=== PATIENT | female | born 1995 | race Hispanic/Latino ===

== ENCOUNTER 2024-11-09 01:32 | Emergency (ER) | payer OTHER ==
--- OUTSIDE RECORDS SUMMARY | 2024-11-09 01:35 | XMS REPORT | Continuity of Care Document ---
Author Name Unknown Address [address] [facility] [address] [place] [address] [facility] Address [address] [facility] [address] [place] [address] Care Team Providers Care Paper Mill Manager Name Role Phone DR RACHEL MEJIA Attending Clinician Bin LEMON, DR MANDIE Don Attending Clinician DR RACHEL Yusuf Admitting Clinician Bin LEMON, DR MANDIE Don Admitting Clinician Mirtha sainz Encounters Start Date/Time End Date/Time Encounter Type Admission Type Attending Clinicians Care Facility Care Department Encounter ID Source 2020-03-03 00:00:00 2020-03-03 00:00:00 Outpatient [facility] [id number] [facility] 2019-01-25 22:55:00 2019-01-26 01:44:00 Emergency E RACHEL MEJIA [facility] [id number] [facility] 2018-10-07 08:59:00 2018-10-07 10:41:00 Emergency E MANDIE LEMON [facility] [id number] [facility] Results Test Description Test Time Test Comments Results Resul t Comments Source U/S GALLBLADDER 2 01:16:47 Exam: Gallbladder ultrasoundLocation: R 16History: Right upper quadrant painComparison: Correlation with CT performed on 01/26/2018Technique: Static, grayscale images of the abdomen limited to the right upperquadrant were obtained.FINDINGS:Liver demonstrates slightly increased echogenicity and coarsened echotexture.No discrete mass lesions are identified. Liver measures 13.7 cm in length.Gallstones are present within the gallbladder lumen. There is no gallbladderwall thickening. There is no pericholecystic fluid on ultrasound. Personographer, sonographic Stevens sign is absent.The common bile duct measures 4 mm. There is no intrahepatic or extrahepaticbiliary dilatation.The pancreas is partially obscured by overlying bowel gas. The visualized headand proximal body are within normal limits.The right kidney measures 10.6 x 4.2 x 5.4 cm. No mass lesions are seen. Thereis no obstruction.The abdominal aorta and inferior vena cava are within normal limits.IMPRESSION:Cholelithi asis without further sonographic evidence for acute cholecystitis.Please correlate. If there is continued clinical concern, consider furthercharacterization with HIDA scan. CT ABDOMEN AND PELVIS WITH CONTRAST 2 00:43:10 CT OF THE ABDOMEN AND PELVIS WITH CONTRASTLocation code:[id number] HISTORY:R side abdominal pain COMPARISON: None available TECHNIQUE:Multiple transaxial images of the abdomen and pelvis were obtained after 100 mL of Omnipaque 300 contrast . Coronal and sagittal reformattedimages were obtained. One or more of the following dose reduction techniqueswere used: Automatic exposure control, adjustment of the mA and/or kV accordingto patient size, and/or utilization of iterative reconstruction technique.Creatinine:0.8 mg/dL, GFR:Greater than 60, DLP:1598 mGy-cmFINDINGS: Abdomen The visualized structures of the lower thorax are unremarkable. There is moderate distention of this gallbladder. Gallstones are seen at thefundus. There is gallbladder wall thickening and minimal pericholecysticinfiltration. Liver, spleen, pancreas, adrenal glands and kidneys are withinnormal limits. There is no hydronephrosis or hydroureter.Unopacified loops of large and small bowel are within normal limits. There isno evidence for obstruction or abnormal mural thickening. Normal caliberappendix is seen in the right lower quadrant. No mesenteric or retroperitoneal lymphadenopathy is found. There is no freeintraperitoneal air or fluid.Visualized abdominal aorta is within normal limits.FINDINGS: PelvisUterus and adnexa are within normal limits. There is small free pelvic fluid.Spondylosis is most pronounced at the L5-S1 level with possible disc protrusionand canal stenosis. No discrete osteolytic or osteosclerotic lesions areotherwise seen..IMPRESSION: 1. There is abnormal dilation of the gallbladder with layering gallstones andgallbladder wall thickening and minimal pericholecystic infiltration. Findingsmay indicate an acute cholecystitis.2. Small free pelvic fluid which is likely physiologic.3. Spondylosis at the L5-S1 level. COMPREHENSIVE METABOLIC [id number] 23:59:00* Test Item Value Reference Range Interpretation Comme nts GLUCOSE (test code = 06D) 119 mg/dL 75-100 H SODIUM (test code = 01A) 139 mmol/L 136-145 POTASSIUM (test code = 01B) 3.7 mmol/L 3.6-5.1 CHLORIDE (test code = 04A) 107 mmol/L 98-107 CO2 (test code = 02A) 27 mmol/L 22-32 ANION GAP (test code = ANG) 8.7 mmol/L BUN (test code = 05D) 6 mg/dL 7-18 L CREATININE (test code = 03E) 0.8 mg/dL 0.4-1.1 BUN/CREA (test code = BCR) 7 12-20 L CALCIUM (test code = 09D) 8.4 mg/dL 8.3-9.5 BILI TOTAL (test code = 11A) 0.7 mg/dL 0.2-1.0 PROTEIN (test code = 07D) 7.4 g/dL 6.4-8.2 ALBUMIN (test code = 08D) 4.2 g/dL 3.5-4.8 GLOBULIN (test code = GLB) 3.2 g/dL 1.5-3.8 ALB/GLOB (test code = AGRR) 1.3 1.0-2.6 ALK PHOS (test code = 35A) 64 IU/L 42-121 AST (test code = 30A) 20 IU/L <=42 ALT (test code = 31A) 39 IU/L <=78 CBC (INCLUDES AUTOMATED DIFFERENTIAL)2019-01-25 23:43:00* Test Item Value Reference Range Interpretation Comme nts WBC (test code = WBC) 7.7 10\S\3/uL 4.5-11.0 RBC (test code = RBC) 3.84 10\S\6/uL 4.30-5.70 L HGB (test code = HBG) 12.6 g/dL 12.0-15.5 HCT (test code = HCT) 36.7 % 35.0-44.0 MCV (test code = MCV) 95.6 fL 81.0-99.0 MCH (test code = MCH) 32.8 pg 27.0-31.0 H MCHC (test code = MCHC) 34.3 g/dL 32.0-36.0 RDW (test code = RDW) 11.9 % 11.5-14.5 PLT (test code = PLT) 198 10\S\3/uL 130-400 MPV (test code = MPV) 11.9 fL 9.4-12.4 NEUTROP # (test code = NE#) 4.6 10\S\3/uL 1.6-8.0 LYMPH # (test code = LY#) 2.3 10\S\3/uL 1.1-3.5 MONOCYTE # (test code = MO#) 0.7 10\S\3/uL 0.0-1.1 EOSINOPH # (test code = EO#) 0.1 10\S\3/uL 0.0-0.7 BASOPHIL # (test code = BA#) 0.0 10\S\3/uL 0.0-0.3 IG # (test code = IG#) 0.02 10\S\3/uL 0.00-0.06 NRBC # (test code = NRBC#) 0.00 10\S\3/uL 0.00-0.01 NEUTROPH % (test code = NE%) 59.5 % 35.0-73.0 LYMPH % (test code = LY%) 30.1 % 20.0-55.0 MONO % (test code = MO%) 9.0 % 2.5-10.0 EOSINOPH % (test code = EO%) 0.6 % 0.0-5.0 BASOPHIL % (test code = BA%) 0.5 % 0.0-2.0 IG % (test code = IG%) 0.3 % 0.0-0.8 NRBC% (test code = NRBC%) 0.0 % 0.0-0.2 MANDIFF (test code = MDIFF) NO NO RBC MORPH (test code = RBCMOR) NORMAL URINALYSIS WITH [id number] 23:20:00* Test Item Value Reference Range Interpretation Comme nts COLOR (test code = COLU) YELLOW YELLOW CLARITY (test code = CLA) TURBID CLEAR A GLUCOSE UR (test code = UA GLUCOSE) NEGATIVE NEGATIVE BILI UR (test code = BILE) NEGATIVE NEGATIVE KETONES UR (test code = GOLDIE) NEGATIVE NEGATIVE SP GRAVITY (test code = SPGR) 1.013 1.005-1.030 PH UR (test code = PH) 7.5 4.5-8.0 PROTEIN UR (test code = PU) NEGATIVE NEGATIVE UROBIL UR (test code = UROQ) 0.2 EU/dL 0.2-1.0 NITRITE UR (test code = NITRITE) NEGATIVE NEGATIVE BLOOD UR (test code = UA BLOOD) NEGATIVE NEGATIVE LEUK ES UR (test code = LEUK) NEGATIVE NEGATIVE WBC UR (test code = UWBC) 0 /HPF 0-5 RBC UR (test code = URBC) 0 /HPF 0-2 EPITH UR (test code = UEPC) FEW /LPF FEW BACTERIA UR (test code = UBACT) MODERATE /HPF NONE A CAST UR (test code = CAST) /LPF NONE CRYSTAL UR (test code = CRYU) / LPF NONE MUCUS UR (test code = MUC) / HPF NONE AMORPH UR (test code = SANDRA) / HPF NONE TRICH UR (test code = UTRICH) /HPF NONE YEAST UR (test code = UY) /HPF NONE SPERM UR (test code = USPERM) /HPF NONE URINE [id number] 23:14:00* Test Item Value Reference Range Interpretation Comme nts PREG UR (test code = PGU) NEGATIVE NEGATIVE U/S [id number] 10:22:53Right upper quadrant ultrasoundLocation Code: [id number] HISTORY: Abdominal painTechnique: Grayscale and selected color Doppler ultrasound of the abdomen wasperformed.Findings:The liver is normal in e chogenicity. There is no mass or intrahepatic biliaryductal dilatation. Right liver span is 13.1cm.Gallstones seen in the neck of the gallbladder. Gallbladder is contracted withthe wall measuring 2 mm. Common bile duct measures 6 mm. There is nopericholecystic fluid. Sonographic Stevens sign is negative.The right kidney is normal in echogenicity with no focal mass, cyst,calcification, or hydronephr osis. It measures 10.5 x 5.0 x 4.0 cm.The visualized portions of the pancreas, aorta, and inferior vena cava areunremarkable. IMPRESSION: Contracted gallbladder with gallstone in the neck.AMYLASE AND [id number] 10:16:00* Test Item Value Reference Range Interpretation Comme nts AMYLASE (test code = 10A) 42 U/L 28-100 LIPASE (test code = 60A) 72 IU/L 73-393 L COMPREHENSIVE METABOLIC [id number] 10:16:00* Test Item Value Reference Range Interpretation Comme nts GLUCOSE (test code = 06D) 85 mg/dL 75-100 SODIUM (test code = 01A) 142 mmol/L 136-145 POTASSIUM (test code = 01B) 3.4 mmol/L 3.6-5.1 L CHLORIDE (test code = 04A) 108 mmol/L 98-107 H CO2 (test code = 02A) 28 mmol/L 22-32 ANION GAP (test code = ANG) 9.4 mmol/L BUN (test code = 05D) 8 mg/dL 7-18 CREATININE (test code = 03E) 0.7 mg/dL 0.4-1.1 BUN/CREA (test code = BCR) 11 12-20 L CALCIUM (test code = 09D) 8.7 mg/dL 8.3-9.5 BILI TOTAL (test code = 11A) 0.5 mg/dL 0.2-1.0 PROTEIN (test code = 07D) 7.7 g/dL 6.4-8.2 ALBUMIN (test code = 08D) 4.2 g/dL 3.5-4.8 GLOBULIN (test code = GLB) 3.5 g/dL 1.5-3.8 ALB/GLOB (test code = AGRR) 1.2 1.0-2.6 ALK PHOS (test code = 35A) 71 IU/L 42-121 AST (test code = 30A) 15 IU/L <=42 ALT (test code = 31A) 27 IU/L <=78 SERUM [id number] 10:10:00* Test Item Value Reference Range Interpretation Comme nts PREG SRM (test code = PGS) NEGATIVE NEGATIVE CBC (INCLUDES AUTOMATED DIFFERENTIAL)2018-10-07 09:59:00* Test Item Value Reference Range Interpretation Comme nts WBC (test code = WBC) 6.3 10\S\3/uL 4.5-11.0 RBC (test code = RBC) 4.18 10\S\6/uL 4.30-5.70 L HGB (test code = HBG) 13.5 g/dL 12.0-15.5 HCT (test code = HCT) 41.2 % 35.0-44.0 MCV (test code = MCV) 98.6 fL 81.0-99.0 MCH (test code = MCH) 32.3 pg 27.0-31.0 H MCHC (test code = MCHC) 32.8 g/dL 32.0-36.0 RDW (test code = RDW) 11.9 % 11.5-14.5 PLT (test code = PLT) 233 10\S\3/uL 130-400 MPV (test code = MPV) 11.9 fL 9.4-12.4 NEUTROP # (test code = NE#) 2.6 10\S\3/uL 1.6-8.0 LYMPH # (test code = LY#) 3.1 10\S\3/uL 1.1-3.5 MONOCYTE # (test code = MO#) 0.4 10\S\3/uL 0.0-1.1 EOSINOPH # (test code = EO#) 0.1 10\S\3/uL 0.0-0.7 BASOPHIL # (test code = BA#) 0.0 10\S\3/uL 0.0-0.3 IG # (test code = IG#) 0.02 10\S\3/uL 0.00-0.06 NRBC # (test code = NRBC#) 0.00 10\S\3/uL 0.00-0.01 NEUTROPH % (test code = NE%) 40.9 % 35.0-73.0 LYMPH % (test code = LY%) 49.4 % 20.0-55.0 MONO % (test code = MO%) 7.0 % 2.5-10.0 EOSINOPH % (test code = EO%) 1.9 % 0.0-5.0 BASOPHIL % (test code = BA%) 0.5 % 0.0-2.0 IG % (test code = IG%) 0.3 % 0.0-0.8 NRBC% (test code = NRBC%) 0.0 % 0.0-0.2 MANDIFF (test code = MDIFF) NO NO RBC MORPH (test code = RBCMOR) NORMAL
--- NOTE | 2024-11-09 01:54 | EDPHYS ---
Physician Documentation [facility] Name: Vickie Telles Age: 29 yrs Sex: Female : 1995 Arrival Date: 11/09/2024 Time: 01:32 Bed IW4 Private MD: ED Physician Rodrigo Cobb HPI: 11/09 01:47 This 29 yrs old Female presents to ER via Unassigned with complaints of Ankle ec2 Injury, LEFT ANKLE. 01:47 Patient arrives today for evaluation of a left ankle injury. [place] that [place]. Denies any other injuries or concerns. Reports some swelling to the area.. 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 - Infectious Disease History:: Denies. - Social history:: Smoking status: Patient denies any tobacco usage or history of. Patient/guardian denies using alcohol, street drugs. ROS: 01:47 Constitutional: as per hpi ec2 Exam: 01:47 Constitutional: GEN: NAD Head: atraumatic Eyes: EOMI Ears: External ears are ec2 normal. CV: regular rate LUNGS: no respiratory distress ABD: non-distended SKIN: no evidence of rashes MSK: Left ankle with joint effusion appreciated, intact distal neurovascular status, TTP to the lateral malleolus Vital Signs: 02:24 BP 130 / 88; Pulse 91; Resp 16 S; Temp 98.4(O); Pulse Ox 100% on R/A; Weight 90.72 kg lg3 (R); Height 5 ft. 3 in. (R); Pain 3/10; 02:24 Body Mass Index 35.43 (90.72 kg, 160.02 cm) lg3 02:24 Pain Scale: Adult lg3 MDM: 01:46 Medical Screening Exam initiated ec2 01:48 Data reviewed: vital signs, nurses notes. ED course: Patient arrives today for ec2 evaluation of a left ankle injury. Examination yields MSK findings as above. Will obtain radiograph. DDx includes ankle sprain, fracture.. 01:53 ED course: Ankle x-ray independently reviewed and interpreted by me, shows soft tissue ec2 swelling, no evidence of bony fracture or dislocation. Will discharge home, place patient in Will wrap, and crutches and discharged home. 11/09 01:36 Order name: Ankle Left 3 View XRAY ec2 11/09 01:53 Order name: Will Wrap; Complete Time: 02:29 ec2 11/09 01:53 Order name: Crutches; Complete Time: 02:29 ec2 Administered Medications: 02:22 CANCELLED (Physician Discretion): [id number] mg IM once ec2 Disposition Summary: 11/09/24 01:53 Discharge Ordered Notes: Location: Home ec2 Condition: Stable ec2 Diagnosis - Sprain of ankle ec2 Followup: ec2 - With: Private Physician - When: - Reason: Re-evaluation by your physician Discharge Instructions: - Discharge Summary Sheet ec2 - Ankle Sprain, [id number] ec2 Forms: - Medication Reconciliation Form ec2 - Antibiotic Education ec2 - Prescription Opioid Use ec2 - Patient Portal Instructions ec2 - Leadership Thank You Letter ec2 Prescriptions: - methocarbamol 500 mg Oral tablet - take 2 tablets ORAL route 4 times per day; 20 tablet; Refills: 0, Product ec2 Selection Permitted Signatures: Dispatcher [employer] Shell Wheatley RN RN lg3 Rodrigo Cobb MD MD ec2 Corrections: (The following items were deleted from the chart) 02:22 01:53 Ketorolac IM 30 mg IM once ordered. ec2 ec2 02: 02:25 Allergies: Ibudone; lg3 lg3
[2024-11-09] MEDS ORDERED: KETOROLAC 30 MG/ML INJ ONE (02:15)
--- NOTE | 2024-11-09 02:30 | ER ---
Nurse's Notes [facility] Name: Vickie Telles Age: 29 yrs Sex: Female : 1995 Arrival Date: 11/09/2024 Time: 01:32 Bed IW4 Private MD: Diagnosis: Sprain of ankle Presentation: 11/09 02:24 Chief complaint: Patient states: [place]. pain 3/10. lg3 Coronavirus screen: Client denies travel out of the [place] in the last 14 days. At this time, the client does not indicate any symptoms associated with coronavirus-19. Ebola Screen: No symptoms or risks identified at this time. Initial Sepsis Screen: Does the patient meet any 2 criteria? No. Patient's initial sepsis screen is negative. Does the patient have a suspected source of infection? No. Patient's initial sepsis screen is negative. Risk Assessment: Do you want to hurt yourself or someone else? Patient reports no desire to harm self or others. Onset of symptoms was November 09, 2024. 02:24 Method Of Arrival: Wheelchair lg3 02:24 Acuity: JUDE 4 lg3 Triage Assessment: 02:25 General: Appears in no apparent distress. comfortable, Behavior is calm, cooperative. lg3 Pain: Complains of pain in left ankle Pain currently is 3 out of 10 on a pain scale. EENT: No deficits noted. No signs and/or symptoms were reported regarding the EENT system. Neuro: No deficits noted. Thomas Agitation-Sedation Scale (RASS): 0 - Alert and Calm Level of Consciousness is awake, alert, obeys commands, Oriented to person, place, time, situation. Cardiovascular: No deficits noted. Denies chest pain, shortness of breath, Capillary refill < 3 seconds Clubbing of nail beds is absent JVD is absent Patient's skin is warm and dry. Respiratory: No deficits noted. Airway is patent Respiratory effort is even, unlabored, Respiratory pattern is regular, symmetrical. GI: No deficits noted. No signs and/or symptoms were reported involving the gastrointestinal system. : No signs and/or symptoms were reported regarding the genitourinary system. Derm: No deficits noted. No signs and/or symptoms reported regarding the dermatologic system. Skin is intact, is healthy with good turgor, Skin is dry, Skin is normal, Skin temperature is warm. Musculoskeletal: Circulation, motion, and sensation intact. Range of motion: limited in all extremities, Swelling present in left ankle. 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 - Infectious Disease History:: Denies. - Social history:: Smoking status: Patient denies any tobacco usage or history of. Patient/guardian denies using alcohol, street drugs. Screenin:28 [facility] ED Fall Risk Assessment (Adult) History of falling in the last 3 months, lg3 including since admission No falls in past 3 months (0 pts) Confusion or Disorientation No (0 pts) Intoxicated or Sedated No (0 pts) Impaired Gait No (0 pts) Mobility Assist Device Used No (0 pt) Altered Elimination No (0 pt) Score/Fall Risk Level 0 - 2 = Low Risk Oriented to surroundings, Maintained a safe environment, Educated pt \T\ family on fall prevention, incl call for assistance when getting out of bed, Assessed \T\ reinforced patient's understanding of fall precautions. Abuse screen: Denies threats or abuse. Denies injuries from another. Nutritional screening: No deficits noted. Tuberculosis screening: No symptoms or risk factors identified. Assessment: 02:28 General: see triage assessment. lg3 Vital Signs: 02:24 BP 130 / 88; Pulse 91; Resp 16 S; Temp 98.4(O); Pulse Ox 100% on R/A; Weight 90.72 kg lg3 (R); Height 5 ft. 3 in. (R); Pain 3/10; 02:24 Body Mass Index 35.43 (90.72 kg, 160.02 cm) lg3 02:24 Pain Scale: Adult lg3 ED Course: 01:34 Patient arrived in ED. jj6 01:46 Rodrigo Cobb MD is Attending Physician. ec2 02:01 Ankle Left 3 View XRAY In Process Unspecified. EDMS 02:25 Triage completed. lg3 02:25 Arm band placed on right wrist. lg3 02:28 Patient has correct armband on for positive identification. lg3 02:28 No provider procedures requiring assistance completed. Patient did not have IV access lg3 during this emergency room visit. Crutch training done. Will wrap to left ankle. Administered Medications: 02:22 CANCELLED (Physician Discretion): [id number] mg IM once ec2 Medication: 02:28 VIS not applicable for this client. lg3 Outcome: 01:53 Discharge ordered by . ec2 02:28 Discharged to home via wheelchair, with crutches, with significant other, lg3 02:28 Condition: stable 02:28 Discharge instructions given to patient, Instructed on discharge instructions, follow up and referral plans. medication usage, crutch walking, Demonstrated understanding of instructions, follow-up care, medications, crutch walking, Prescriptions given X 1, 02:30 Patient left the ED. lg3 Signatures: Dispatcher [employer] Shell Wheatley RN RN lg3 Mackenzie Carbajal [email or web address] Rodrigo Cobb MD MD ec2 Corrections: (The following items were deleted from the chart) 02:26 02:25 Allergies: Ibudone; lg3 lg3
[2024-11-09 02:58] VITALS: BP 130/88; TEMP 98.4; O2SAT 100
--- NOTE | 2024-11-09 06:40 | RAD REPORT ---
CLINICAL HISTORY: Left ankle injury. COMPARISON: None. TECHNIQUE: XR ANKLE 3 OR MORE VIEWS LEFT 11/09/2024 1:36 AM CDT FINDINGS: There is no fracture. Joint spaces are preserved. There is lateral and anterior soft tissue swellin g. IMPRESSION: No acute osseous findings. Electronically signed by: Tate Belcher MD 11/09/2024 03:56 AM CDT RP Due to temporary technical issues with the PACS/[employer] reporting system, reports are being akbar d by the in-house radiologist without review as a courtesy to ensure prompt reporting. The interpreting radiologist is fully responsible for the content of the report. Transcribed Date/Time: 11/09/2024 6:39 AM
== END 2024-11-09 02:30 | disposition home or self-care (01) ==
LOC: ER 01:32
DX: S93.409A Sprain of unspecified ligament of unspecified ankle, initial encounter (principal)
CPT/HCPCS: 99283